=== PATIENT | male | born 1945 | race Caucasian/White ===

== ENCOUNTER 2018-05-20 16:02 | Observation (INO) | payer OTHER, SELFPAY ==
--- NOTE | 2018-05-20 16:18 | RAD REPORT ---
EXAM DESCRIPTION: CT - Ct Stroke Brain Wo Cont - 05/20/2018 4:07 pm CLINICAL HISTORY: CONFUSED/alteration of awareness COMPARISON: None. TECHNIQUE: Computed axial tomography of the head was obtained. IV contrast was not requested. All CT scans are performed using dose optimization technique as appropriate and may include automated exposure control or mA/KV adjustment according to patient size. FINDINGS: An intracranial bleed is not seen . The ventricles are normal in caliber. No extra-axial fluid collection is noted. A prominent cerebral atrophy is noted. Fluid within the sinuses/ mastoids is not seen. IMPRESSION: No acute intracranial abnormality is seen. If patient's symptoms persist MRI of the bra in would be recommended. Dr. Sanchez of the emergency room was notified at 4:15 p.m. May 20, 2018
[2018-05-20] MEDS ORDERED: NA CHLORIDE 0.9% 500 ML ONE (16:26)
--- NOTE | 2018-05-20 16:33 | RAD REPORT ---
EXAM DESCRIPTION: Timmy Single View05/20/2018 4:25 pm CLINICAL HISTORY: confused to obstruct COMPARISON: none FINDINGS: The lungs appear clear of acute infiltrate. The heart is mildly enlarged IMPRESSION: No acute abnormalities displayed
[2018-05-20 16:37] LABS: Absolute Lymphocytes (CBC) 2.3 K/uL (0.7-4.9); Absolute Monocytes 0.9 K/uL (0.1-1.3); Absolute Neutrophil 3.8 K/uL (1.8-8.0); Basophils % 0.7 % (0-1.3); Eosinophils % 4.9 % (0-4.4); Hematocrit 39.4 % (39.6-49.0); MCH 31.2 pg (27.0-35.0); MCV 90.5 fL (80-100); MPV 10.6 fL (7.6-11.3); Monocytes % 11.7 % (3.3-12.3); RBC Red Blood Cell Count 4.36 M/uL (4.33-5.43)
[2018-05-20 16:39] LABS: Protime INR 1.38
[2018-05-20 17:26] LABS: ALT/SGPT 16 U/L (12-78); AST/SGOT 18 U/L (15-37); Albumin 3.5 g/dL (3.4-5.0); Alkaline Phosphatase 88 U/L (45-117); BUN Blood Urea Nitrogen 11 mg/dL (7-18); Bicarbonate 25 mmol/L (21-32); Bilirubin Direct 0.2 mg/dL (0-0.2); Bilirubin Total 0.5 mg/dL (0.2-1.0); Glucose Level 83 mg/dL (74-106); Potassium 3.9 mmol/L (3.5-5.1); Protein, Total 7.6 g/dL (6.4-8.2); Sodium Level 137 mmol/L (136-145)
[2018-05-20 17:33] LABS: Alcohol Serum/Plasma < 3 mg/dL (<3)
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
[2018-05-20] MEDS ORDERED: ACETAMINOPHEN 500 MG TAB PO PRN (19:43)
[2018-05-20] MEDS ORDERED: ONDANSETRON 4 MG/2 ML VIAL IV PRN (19:43)
[2018-05-20 20:33] LABS: Appearance CLEAR (CLEAR); Body Fluid Source CSF; Color of fluid Colorless (COLORLESS); Fluid Total Volume 5 ml
[2018-05-20 20:34] LABS: Body Fluid WBC 0 /mm^3
[2018-05-20 20:35] LABS: Appearance CLEAR (CLEAR); Body Fluid Source CSF; Body Fluid WBC 0 /mm^3; Color of fluid Colorless (COLORLESS)
[2018-05-20 20:36] LABS: CSF Glucose 59 mg/dL (40-70)
[2018-05-20 21:03] LABS: Thyroid Stimulating Hormone 2.43 uIU/mL (0.36-3.74)
[2018-05-20 21:30] LABS: RPR Titer ND
[2018-05-20] MEDS: METHYLPREDNISOLONE 40 MG INJ IV SCH (22:53)
[2018-05-20] MEDS: NA CHLORIDE 0.9% 1,000 ML IV SCH (22:53)
[2018-05-20 23:46] LABS: RPR (Rapid Plasma Reagin) NON-REACT (NON-REACT)
[2018-05-21 04:30] LABS: Absolute Lymphocytes (CBC) 0.9 K/uL (0.7-4.9); Absolute Monocytes 0.2 K/uL (0.1-1.3); Absolute Neutrophil 4.4 K/uL (1.8-8.0); Basophils % 0.3 % (0-1.3); Eosinophils % 1.1 % (0-4.4); Lymphocytes % 15.8 % (15.3-44.8); MCH 31.3 pg (27.0-35.0); MCV 91.3 fL (80-100); MPV 11.1 fL (7.6-11.3); Monocytes % 3.2 % (3.3-12.3); RBC Red Blood Cell Count 4.38 M/uL (4.33-5.43)
[2018-05-21 04:44] LABS: ALT/SGPT 16 U/L (12-78); AST/SGOT 17 U/L (15-37); Albumin 3.5 g/dL (3.4-5.0); Alkaline Phosphatase 80 U/L (45-117); BUN Blood Urea Nitrogen 10 mg/dL (7-18); Bicarbonate 25 mmol/L (21-32); Bilirubin Total 0.5 mg/dL (0.2-1.0); Glucose Level 135 mg/dL (74-106); HDL Cholesterol 40 mg/dL (40-60); LDL Cholesterol, Calculated 72 (<130); Magnesium 1.7 mg/dL (1.8-2.4); Phosphorus 2.5 mg/dL (2.5-4.9); Potassium 4.1 mmol/L (3.5-5.1); Protein, Total 7.6 g/dL (6.4-8.2); Sodium Level 138 mmol/L (136-145)
[2018-05-21 05:35] LABS: Barbiturates NEGATIVE (NEGATIVE); Benzodiazepines NEGATIVE (NEGATIVE); Cocaine NEGATIVE (NEGATIVE); METHAMPHETAM NEGATIVE (NEGATIVE); Methadone NEGATIVE (NEGATIVE); Opiates NEGATIVE (NEGATIVE); Phencyclidine NEGATIVE (NEGATIVE); THC Cannibis NEGATIVE (NEGATIVE)
[2018-05-21] MEDS ORDERED: MAGNESIUM SULFATE 1 gm IVPB 1 GM/100 ML BAG IV ONE (05:37)
[2018-05-21 05:46] LABS: Urine Appearance CLEAR; Urine Bilirubin NEGATIVE (NEG); Urine Blood NEGATIVE (NEG); Urine Color YELLOW; Urine Glucose NEGATIVE (NEG); Urine Protein NEGATIVE (NEG); Urine pH 7.5 (5.0-7.0)
[2018-05-21 05:58] LABS: Urine Microscopic Reflex NO UMIC
[2018-05-21] MEDS: METHYLPREDNISOLONE 40 MG INJ IV SCH ×2 (06:08→11:34)
[2018-05-21] MEDS: NA CHLORIDE 0.9% 1,000 ML IV SCH ×2 (06:08→15:43)
--- NOTE | 2018-05-21 07:06 | EKG ---
Test Date: 2018-05-20 Test Time: 16:13:40 Flower Cheniller: [place] MEASUREMENT RESULTS: Intervals: Rate: 64 NE: QRSD: 96 QT: 440 QTc: 453 Bayard: P: NE: QRS: 161 T: 137 INTERPRETIVE STATEMENTS: Atrial fibrillation Right axis deviation Low voltage QRS Abnormal ECG No previous ECG available for comparison Electronically Signed On 05-21-18 07:05:37 CDT by Vinay Payton
[2018-05-21] MEDS ORDERED: POTASSIUM PHOS IN 0.9 % NACL 15 MMOL/250 ML BAG IV ONE (08:00)
--- NOTE | 2018-05-21 08:30 | P.HP ---
Certification for Inpatient Patient admitted to: Observation With expected LOS: <2 Midnights Patient will require the following post-hospital care: None Practitioner: I am a practitioner with admitting privileges, knowledge of patient current condition, hospital course, and medical plan of care. Services: Services provided to patient in accordance with Admission requirements found in Title 42 Section 412.3 of the Code of Federal Regulations Patient History Date of Service: 05/20/18 Reason for admission: Altered mental status History of Present Illness: Patient is a 72-year-old gentleman who was living in a facility in [place]. 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 Patient is altered and is not really able to answer any of my questions appropriately. He does not know where he is he does not know how old he is. He does not know when his birthday is. His family states that he has altered mental status. They state that he maybe even at his baseline. They want to go ahead and take him home in the morning. After talking with nursing staff, the family do not want have him to have any further testing. Will go ahead and hold off on the MRI in the morning and plan to discharge him home if the family is agreeable. At this time, if patient is at his baseline will release and with his family so they can take him back home to [place]. Allergies No Known Allergies Allergy (Verified 05/20/18 22:41) Home Medications: Atorvastatin Calcium 40 mg PO DAILY 05/20/18 Calcium Carbonate [Calcium] 500 mg PO DAILY 05/20/18 Donepezil HCl 10 mg PO DAILY 05/20/18 Melatonin/Pyridoxine [Melatonin 5 mg Tablet] 1 each PO BEDTIME 05/20/18 Omeprazole 20 mg PO DAILY 05/20/18 Risperidone [Risperdal] 0.5 mg PO DAILY 05/20/18 Rivaroxaban [Xarelto] 20 mg PO DAILY 05/20/18 - Past Medical/Surgical History Has patient received pneumonia vaccine in the past: Yes Diabetic: No -: HTN -: Dementia -: BPH -: appendectomy -: back surgery - Family History Mother Medical History: Diabetes Father Notes: alzhemiers - Social History Smoking Status: Never smoker Alcohol use: No CD- Drugs: No Caffeine use: Yes Place of Residence: [place] Review of Systems 10-point ROS is otherwise unremarkable Physical Examination - Vital Signs Temperature: 97.7 F Blood Pressure: 138/94 Pulse: 81 Respirations: 18 Pulse Ox (%): 95 - Physical Exam General: Alert, In no apparent distress, Oriented x3 HEENT: Atraumatic, PERRLA, Mucous membr. moist/pink, EOMI, Sclerae nonicteric Neck: Supple, 2+ carotid pulse no bruit, No LAD, Without JVD or thyroid abnormality Respiratory: Clear to auscultation bilaterally, Normal air movement Cardiovascular: Regular rate/rhythm, Normal S1 S2, No murmurs Gastrointestinal: Normal bowel sounds, Soft and benign, Non-distended, No tenderness Musculoskeletal: No clubbing, No swelling, No tenderness Integumentary: No rashes Neurological: Normal gait, Normal speech, Normal strength at 5/5 x4 extr, Normal tone, Sensation intact, Cranial nerves 3-12 intact, Normal affect Lymphatics: No axilla or inguinal lymphadenopathy - Studies Laboratory Data (last 24 hrs) 05/20/18 16:23: WBC 7.3, Hgb 13.6, Hct 39.4 L, Plt Count 155 05/20/18 16:15: PT 16.3 H, INR 1.38, APTT 34.9 05/20/18 16:15: Sodium 137, Potassium 3.9, BUN 11, Creatinine 0.90, Glucose 83, Total Bilirubin 0.5, AST 18, ALT 16, Alkaline Phosphatase 88 Assessment & Plan - Problems (Diagnosis) (1) Altered mental status Current Visit: Yes Status: Acute (2) Dementia Current Visit: Yes Status: Acute (3) HTN (hypertension) Current Visit: Yes Status: Acute - Plan Plan: 1. Gentle hydration 2. Resume home medications 3. Monitor electrolytes 4. Resume diet 5. Supportive care 6. Anticipate discharge home in the morning as long as family is agreeable to take him home 7. GI and DVT prophylaxis 8. Patient may be changed to observation stay if he is back to his baseline functioning Discharge Plan: Home Plan to discharge in: 24 Hours - Advance Directives Does patient have a Living Will: No Does patient have a Durable POA for Healthcare: No - Code Status/Comfort Care Code Status Assessed: Yes Code Status: Full Code Critical Care: No Time Spent Managing PTS Care (In Minutes): 50
--- NOTE | 2018-05-21 15:50 | P.PN ---
Subjective Date of Service: 05/21/18 Chief Complaint: Altered mental status Patient seen and examined at bedside with RN. Chart reviewed. -no complaints to offer overnight. -patient is currently oriented to person. Per family patient is at his baseline may have been getting acutely worse. Review of Systems 10-point ROS is otherwise unremarkable Physical Examination - Vital Signs Temperature: 98.1 F Blood Pressure: 126/82 Pulse: 93 Respirations: 18 Pulse Ox (%): 97 - Physical Exam General: Alert, In no apparent distress, Oriented x1 HEENT: Atraumatic, PERRLA, EOMI Neck: Supple, JVD not distended Respiratory: Clear to auscultation bilaterally, Normal air movement Cardiovascular: Regular rate/rhythm, Normal S1 S2 Gastrointestinal: Normal bowel sounds, No tenderness Musculoskeletal: No tenderness Integumentary: No rashes Neurological: Normal speech, Normal tone, Normal affect Lymphatics: No axilla or inguinal lymphadenopathy - Studies Laboratory Data (last 24 hrs) 05/20/18 16:23: WBC 7.3, Hgb 13.6, Hct 39.4 L, Plt Count 155 05/20/18 16:15: PT 16.3 H, INR 1.38, APTT 34.9 05/20/18 16:15: Sodium 137, Potassium 3.9, BUN 11, Creatinine 0.90, Glucose 83, Total Bilirubin 0.5, AST 18, ALT 16, Alkaline Phosphatase 88 Medications List Reviewed: Yes Assessment And Plan - Current Problems (Diagnosis) (1) Altered mental status Current Visit: Yes Status: Acute Plan: Altered mental status. -patient may be at his baseline however acute process cannot be ruled out. -MRI pending at this time. EEG is also pending at this time. -urology recommends stations are also pending at this time. -lab work is within normal limits LP is negative for any bacterial infection certain send out labs are pending at this time Qualifiers: Altered mental status type: disorientation Qualified Code(s): R41.0 - Disorientation, unspecified (2) Dementia Current Visit: Yes Status: Chronic Qualifiers: Dementia type: Alzheimer's disease Alzheimer's disease onset: late-onset Dementia behavioral disturbance: without behavioral disturbance Qualified Code (s): G30.1 - Alzheimer's disease with late onset; F02.80 - Dementia in other diseases classified elsewhere without behavioral disturbance (3) HTN (hypertension) Current Visit: Yes Status: Chronic Qualifiers: Hypertension type: essential hypertension Qualified Code(s): I10 - Essential (primary) hypertension - Plan Currently awaiting clinical improvement. Will follow up with neurological recommendation. MRI and EEG are pending will follow up with those results. Anticipate discharge in 24-48 hr to [facility] the patient came from. Discharge Plan: Home Plan to discharge in: 48 Hours - Code Status/Comfort Care Code Status Assessed: Yes Critical Care: No
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
--- NOTE | 2018-05-21 19:29 | RAD REPORT ---
EXAM DESCRIPTION: US - CP - 05/21/2018 6:57 pm CLINICAL HISTORY: AMS COMPARISON: No comparisons TECHNIQUE: Real-time sonographic evaluation of both carotid systems was performed. Doppler interroga tion was performed with waveform tracing bilaterally. FINDINGS: The examination was technically challenging due to patient condition. Normal high resistance waveforms are noted in both external carotid arteries. The common carotid devyn michel and internal carotid arteries show normal low resistance waveforms. Mild hard plaquing is present. The internal carotid arteries appear tortuous. Peak systolic and end d iastolic velocity values and the ICA/CCA ratios are in the non-hemodynamically significant range. Antegrade flow seen in both vertebral arteries. IMPRESSION: A limited study is submitted without evidence of a hemodynamically significant carotid s tenosis.
--- NOTE | 2018-05-21 20:30 | RAD REPORT ---
EXAM DESCRIPTION: MRI - Brain W/Wo Cont - 05/21/2018 8:10 pm CLINICAL HISTORY: eval for stroke CVA COMPARISON: CHEST PA AND LAT 2 VIEW dated 11/09/2015; CHEST PA AND LAT 2 VIEW dated 11/14/2010; CHEST SINGLE VIEW dated 06/09/2009; Outpt Chest Pa/Lat (2 Views) dated 10/28/2017MRA Head Wo Cont dated 018MRA Head Wo Cont dated 05/21/2018; Ct Stroke Brain Wo Cont dated 05/20/2018 TECHNIQUE: Multi-sequence, multiplanar MR imaging of the brain was performed with contrast. FINDINGS: No intracranial hemorrhage, hydrocephalus, extra-axial fluid collection or acute infarctio n.Prominent brain atrophy is noted. No edema or shift of midline structures. No intracranial mass. DW I is negative for acute CVA. The midline structures are normally formed. Small amount of polypoid mucosal thickening is seen in th e left maxillary antrum. The paranasal sinuses and mastoids are otherwise clear. Post-contrast images show no abnormal enhancement to suggest tumor or infection. IMPRESSION: Negative for acute CVA or other acute intracranial process. No pathologic post-contrast enhancement seen. Mild left maxillary sinus disease.
--- NOTE | 2018-05-21 20:37 | RAD REPORT ---
EXAM DESCRIPTION: MRI - MRA Head Wo Cont - 05/21/2018 8:10 pm CLINICAL HISTORY: AMS CVA COMPARISON: Ct Stroke Brain Wo Cont dated 05/20/2018 FINDINGS: 3D noncontrast [id number] MR angiography of the [place] was performed. No aneurysm, flow-limiting stenosis or vascular malformation is seen. Forward flow seen in codominant vertebral arteries. The visualized dural venous sinuses appear patent. IMPRESSION: No significant flow abnormality of the [place] is identified.
--- NOTE | 2018-05-21 20:39 | RAD REPORT ---
EXAM DESCRIPTION: MRI - MRA Neck W/Wo Cont - 05/21/2018 8:09 pm CLINICAL HISTORY: eval for stroke CVA COMPARISON: No comparisons FINDINGS: Contrast enhance 2D [id number] MR angiography of the neck vessels was performed. A left aortic arch is noted with a normal 3 vessel origin pattern of the great vessels. Mild atherosclerotic narrowing is seen of the right carotid bulb. Moderate atherosclerotic narrowing is present of the proximal left internal carotid artery estimated 50%. Antegrade flow seen in both ve rtebral arteries. IMPRESSION: Moderate atherosclerotic narrowing of proximal left ICA, estimated at 50%. No severe/hig h-grade stenosis identified on either side.
[2018-05-21] MEDS ORDERED: ATORVASTATIN 40 MG TAB PO SCH (21:00)
[2018-05-21] MEDS ORDERED: HOME MED 1 EA UNK (Melatonin/Pyridoxine [Melatonin 5 Mg Tablet] 1 EACH) PO SCH (21:00)
[2018-05-21] MEDS ORDERED: DONEPEZIL HCL 5 MG TAB PO SCH (21:00)
[2018-05-22 06:44] LABS: Absolute Monocytes 1.2 K/uL (0.1-1.3); Basophils % 0.4 % (0-1.3); Eosinophils % 0.1 % (0-4.4); Hematocrit 40.8 % (39.6-49.0); Lymphocytes % 16.7 % (15.3-44.8); MCH 30.8 pg (27.0-35.0); MCV 89.9 fL (80-100); MPV 11.1 fL (7.6-11.3); Monocytes % 9.4 % (3.3-12.3); RBC Red Blood Cell Count 4.54 M/uL (4.33-5.43)
[2018-05-22 06:50] LABS: Albumin 3.4 g/dL (3.4-5.0); Bilirubin Total 0.4 mg/dL (0.2-1.0); Magnesium 2.2 mg/dL (1.8-2.4); Phosphorus 3.6 mg/dL (2.5-4.9); Potassium 4.2 mmol/L (3.5-5.1); Protein, Total 7.5 g/dL (6.4-8.2)
[2018-05-22] MEDS ORDERED: PANTOPRAZOLE 40MG TABLET PO SCH (07:30)
[2018-05-22] MEDS ORDERED: RIVAROXABAN 20 MG TABLET PO SCH (08:00)
--- NOTE | 2018-05-22 08:08 | EEG ---
CHART: [id number] TEST ID#: [id number] DATE OF STUDY: 05/21/2018 THE EEG WAS RECORDED PORTABLE IN THE PATIENTS ROOM ON A 17 CHANNEL MACHINE. ELECTRODES WERE APPLIED IN THE USUAL MANNER USING THE INTERNATIONAL 10-20 SYSTEM. THE WAKING BACKGROUND RHYTHM IN THIS RECORD CONSISTS OF VERY WELL DEVELOPED AND WELL ORGANIZED WAVES OF 10 HZ., MAXIMAL IN THE POSTERIOR HEAD REGIONS WHICH ATTENUATE NORMALLY WITH EYE OPENING. LOW-VOLTAGE 18-22 HZ ACTIVITY IS EXPRESSED INT THE FRONTAL REGIONS. THERE ARE NO FOCAL OR LATERALIZING FEATURES. NO EPILEPTIFORM ACTIVITY APPEARS. SLEEP DID NOT OCCUR. HYPERVENTILATION WAS NOT PERFORMED. PHOTIC STIMULATION PRODUCED FAIR DRIVING BILATERALLY. IMPRESSION: NORMAL EEG FOR THE AGE OF THE PATIENT IN [place].
[2018-05-22] MEDS ORDERED: HOME MED 1 EA UNK (Omeprazole [Omeprazole] 20 MG) PO SCH (09:00)
[2018-05-22] MEDS ORDERED: HOME MED 1 EA UNK (Donepezil Hcl [Donepezil Hcl] 10 MG) PO SCH (09:00)
[2018-05-22] MEDS ORDERED: RISPERIDONE 0.5 MG PO SCH (09:00)
[2018-05-22] MEDS ORDERED: CALCIUM CARBONATE 500 MG TAB PO SCH (09:00)
[2018-05-22] MEDS ORDERED: RISPERIDONE 0.25 MG TABLET PO SCH (09:00)
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
[2018-05-22] MEDS ORDERED: MELATONIN 5 MG TABLET PO SCH (21:00)
== END 2018-05-22 20:46 | disposition home or self-care (01) ==
LOC: ER 16:02 → INTOOBSV 18:58 → ERHOLD 18:58 → 4TH 20:00
PROVIDERS: ADMIT Hospitalist; ATTEND Hospitalist
DX: R41.82 Altered mental status, unspecified (principal); I10 Essential (primary) hypertension; G30.1 Alzheimer's disease with late onset; F02.80 Dementia in other diseases classified elsewhere, unspecified severity, without behavioral disturbance, psychotic disturbance, mood disturbance, and anxiety; N40.0 Benign prostatic hyperplasia without lower urinary tract symptoms
CPT/HCPCS: 36415 ×2; 62270; 70450; 70544; 70549; 70553; 71045; 80048; 80053 ×2; 80061; 80076; 80307 ×8; 80320; 80329 ×2; 81003; 82140; 82607; 82945; 82962; 83735 ×2; 84100 ×2; 84157; 84443; 84484; 85025 ×3; 85610; 85652; 85730; 86403 ×6; 86592 ×2; 87070; 89050 ×2; 93005; 93880; 94760 ×3; 95816; 99285; A9577; G0378 ×2; J2920 ×3; J3475; J7030 ×2